=== PATIENT | female | born 1975 | race Caucasian/White ===

== ENCOUNTER 2017-06-10 10:40 | Emergency (ER) | payer OTHER ==
[~2017-06-10] VITALS: Ht 160 cm; Wt 129.1 kg
[~2017-06-10 10:40] MED LIST: CYCL-36 PO; IBUP600T26 PO; MMW SWISH-SWAL; TRAM50TA PO; Z.0.BCPILL PO
[2017-06-10 10:49] VITALS: BP 153/97; PULSE 86; RESP 18; TEMP 98.8; O2SAT 98
--- NOTE | 2017-06-10 12:28 | PD ---
HPI Chief Complaint: Musculoskeletal Complaint Time Seen by Provider: 12:01 Travel History International Travel<30 days: No Contact w/Intl Traveler<30days: No Traveled to known affect area: No History of Present Illness HPI 41-year-old female presents to the emergency room for evaluation of right knee pain for the past 2 days. Patient denies trauma or injury. States she had probable meniscal tear 2 years ago and this feels the same. She never followed up with her PCP for MRI to confirm and has never seen an orthopedist for previous injury. States she has had no significant problems until 2 days ago. She has associated instability of the knee. Pain has been gradually worsening. She could barely apply weight yesterday. Pain is generalized and difficult to localize. States it occasionally radiates to the back of her knee. She applied ice and her knee immobilizer yesterday which significantly improved her symptoms. She has not taken anything for pain. She denies lower extremity paresthesias. PFSH Past Medical History Arthritis: Yes Depression: Yes Diabetes: No Diminished Hearing: No Reproductive: Yes (ENDOMETRIOSIS) Immunizations Current: Yes Tetanus Vaccination: > 5 Years Influenza Vaccination: No ?: Not Menopausal: No : 3 Para: 2 Past Surgical History Abdominal Surgery: Yes (LAPAROSCOPY) Section: Yes (2005;2006) Cholecystectomy: Yes Gynecologic Surgery: Yes (LAPAROSCOPY DUE TO ENDOMETRIOSIS,2004.) Other Surgery: Yes (; LASER SURG TO REMOVAL HEEL SPURS BILAT. BONE MARROW DONOR) Social History Alcohol Use: Yes (RARELY) Tobacco Use: No (quit 2001) Substance Use: No Allergies-Medications (Allergen,Severity, Reaction): Coded Allergies: No Known Allergies (Verified , 06/10/17) Reported Meds & Prescriptions Reported Meds & Active Scripts Active No Active Prescriptions or Reported Medications Review of Systems Except as stated in HPI: all other systems reviewed are Neg Physical Exam Narrative GENERAL: Well-nourished, morbidly obese female in no acute distress. Afebrile. Ambulatory. SKIN: Focused skin assessment warm/dry. No erythema or ecchymosis. HEAD: Normocephalic. EYES: No scleral icterus. No injection or drainage. NECK: Supple, trachea midline. No JVD or lymphadenopathy. CARDIOVASCULAR: Regular rate and rhythm without murmurs, gallops, or rubs. RESPIRATORY: Breath sounds equal bilaterally. No accessory muscle use. MUSCULOSKELETAL: No cyanosis. No edema or obvious effusion. Full range of motion. No significantly increased warmth. 2+ dorsalis pedis pulse. No bony tenderness to palpation. No pain with valgus or varus stress. Negative anterior and posterior drawer test. Data Data Last Documented VS Vital Signs Date Time Temp Pulse Resp B/P (MAP) Pulse Ox O2 Delivery O2 Flow Rate FiO2 06/10/17 10:49 98.8 86 18 153/97 (115) 98 MDM Medical Decision Making Medical Screen Exam Complete: Yes Emergency Medical Condition: Yes Medical Record Reviewed: Yes Differential Diagnosis Internal derangement, fracture, sprain, strain, dislocation Narrative Course 41-year-old female presents to the emergency room for evaluation of acute on chronic right knee pain that started 2 days ago without trauma or injury. Patient has been ambulatory but with moderate pain. Pain is generalized. Right lower extremity is neurovascularly intact with 2+ dorsalis pedis pulse. She has full range of motion of the right knee. No erythema, ecchymosis, edema , or obvious effusion. No bony tenderness to palpation. This is internal derangement. Without trauma or injury and given previous x-ray which shows osteoarthritis, there is no indication for re-imaging at this time. Patient was told to follow-up with her primary care physician for outpatient MRI if symptoms persist. She has knee immobilizer and crutches at home and was encouraged to use these as needed for pain. Told to return for worsening symptoms. She understands and agrees to plan. Diagnosis Primary Impression: Internal derangement of right knee Referrals: [facility] Primary [facility] Physician Additional Instructions: Rest and drink plenty of fluids. Take ibuprofen with food as directed, as needed for pain. Apply ice to the affected area for 20 minutes at a time, as needed for pain and swelling. Follow-up with a primary care physician for outpatient MRI. Return to the emergency room for worsening symptoms. Med/Other Pt SpecificInfo: Prescription(s) given Scripts No Active Prescriptions or Reported Meds Disposition: 01 DISCHARGE HOME Condition: Stable Gloria Wheeler Jun 10, 2017 12:28
== END 2017-06-10 12:38 | disposition home or self-care (01) ==
LOC: PHED 10:40 → PHEFT 12:38
DX: M23.91 Unspecified internal derangement of right knee (principal); Z87.891 Personal history of nicotine dependence
CPT/HCPCS: 99282